=== PATIENT | female | born 1940 | race Caucasian/White ===

== ENCOUNTER → 2017-11-01 | Outpatient (CLI) | payer OTHER, MEDICARE ==
[~2017-11-01] MED LIST: ASPI-650 PO; CELE200C PO; HYDR-3237 PO; LEVO88TA43 PO; SIMV40TA3 PO; TRAM50TA2 PO; VALS160T3 PO; VALS320T2 PO
[2017-11-01 11:38] LABS: BASOPHILS % (AUTO) 1 % (0-1); EOSINOPHILS # (AUTO) 0.22 x10^3/uL (0-0.4); EOSINOPHILS % (AUTO) 2 % (1-7); LYMPHOCYTES # (AUTO) 1.35 x10^3/uL (1-3.4); LYMPHOCYTES % (AUTO) 14 % (22-44); MD NO; MEAN CORPUSCULAR HEMOGLOBIN 32.3 pg (27.0-34.8); MEAN CORPUSCULAR VOLUME 94.9 fL (80-100); MEAN PLATELET VOLUME 6.8 fL (7.4-10.4); MONOCYTES # (AUTO) 0.76 x10^3/uL (0.2-0.8); MONOCYTES % (AUTO) 8 % (2-9); NEUTROPHILS # (AUTO) 7.51 x10^3/uL (1.8-6.8); NEUTROPHILS % (AUTO) 76 % (42-75); PLATELET COUNT 343 x10^3/uL (130-400); RED BLOOD COUNT 4.76 x10^6/uL (3.82-5.3); RED CELL DISTRIBUTION WIDTH 13.8 % (9.6-15.2)
[2017-11-01 11:51] LABS: ALANINE AMINOTRANSFERASE 29 U/L (12-78); ALBUMIN 3.7 g/dL (3.4-5.0); CALCIUM 8.8 mg/dL (8.5-10.1); CREATININE 1.05 mg/dL (0.55-1.02)
[2017-11-01 12:04] LABS: ALKALINE PHOSPHATASE 102 U/L (45-117); ANION GAP 10 mmol/L (5-15); BILIRUBIN,TOTAL 0.4 mg/dL (0.2-1.0); CHLORIDE 105 mmol/L (98-107); TOTAL PROTEIN 7.8 g/dL (6.4-8.2)
== END | disposition home or self-care (01) ==
LOC: STAR 10:35
PROVIDERS: ATTEND Surgery
DX: Z01.818 Encounter for other preprocedural examination (principal)
CPT/HCPCS: 36415; 71046; 80053; 85025; 93005

== ENCOUNTER 2017-11-14 01:03 | Inpatient (IN) | payer OTHER, MEDICARE ==
[~2017-11-14] VITALS: Ht 162.6 cm; Wt 98.0 kg
[~2017-11-14 01:03] MED LIST changes: +OXYC-302 PO
[2017-11-14] MEDS ORDERED: SODIUM CHLORIDE 0.9% 1,000 ML IV ONE ×2 (01:35→03:31)
[2017-11-14] MEDS ORDERED: MORPHINE SULFATE 4 MG/ML, 1ML ONE ×3 (01:55→04:40)
[2017-11-14] MEDS ORDERED: ONDANSETRON ODT 4 MG ONE (01:55)
[2017-11-14] MEDS: MORPHINE SULFATE 4 MG/ML, 1ML IVPush PRN ×2 (02:00→03:01)
[2017-11-14] MEDS ORDERED: SODIUM CHLORIDE FLUSH 10ML SYR IVF ONE (02:00)
[2017-11-14] MEDS ORDERED: ONDANSETRON ODT 4 MG PO ONE (02:00)
[2017-11-14] MEDS ORDERED: SODIUM CHLORIDE 0.9% 1,000ML IVBOLUS ONE ×2 (02:00→02:30)
[2017-11-14 02:08] LABS: BASOPHILS # (AUTO) 0.02 x10^3/uL (0-0.1); BASOPHILS % (AUTO) 0 % (0-1); EOSINOPHILS # (AUTO) 0.05 x10^3/uL (0-0.4); EOSINOPHILS % (AUTO) 0 % (1-7); LYMPHOCYTES # (AUTO) 0.68 x10^3/uL (1-3.4); LYMPHOCYTES % (AUTO) 5 % (22-44); MD NO; MEAN CORPUSCULAR HEMOGLOBIN 31.9 pg (27.0-34.8); MEAN CORPUSCULAR HGB CONC 33.8 g/dL (32.4-35.8); MEAN CORPUSCULAR VOLUME 94.4 fL (80-100); MEAN PLATELET VOLUME 6.8 fL (7.4-10.4); MONOCYTES % (AUTO) 2 % (2-9); NEUTROPHILS # (AUTO) 12.41 x10^3/uL (1.8-6.8); NEUTROPHILS % (AUTO) 92 % (42-75); PLATELET COUNT 416 x10^3/uL (130-400); RED BLOOD COUNT 4.72 x10^6/uL (3.82-5.3); RED CELL DISTRIBUTION WIDTH 13.6 % (9.6-15.2)
[2017-11-14 02:16] LABS: INTERNATIONAL NORMALIZED RATIO 0.91 (0.93-1.1); PROTHROMBIN TIME 9.5 Seconds (9.6-11.5)
[2017-11-14 02:19] LABS: ALANINE AMINOTRANSFERASE 53 U/L (12-78); ALBUMIN 3.4 g/dL (3.4-5.0); ANION GAP 8 mmol/L (5-15); CALCIUM 10.1 mg/dL (8.5-10.1); CHLORIDE 103 mmol/L (98-107)
[2017-11-14 02:21] LABS: ALKALINE PHOSPHATASE 85 U/L (45-117); BILIRUBIN,TOTAL 0.8 mg/dL (0.2-1.0); CREATININE 1.16 mg/dL (0.55-1.02); TOTAL PROTEIN 7.8 g/dL (6.4-8.2)
[2017-11-14] MEDS ORDERED: PIPERACILLIN/TAZO/PMX 3.375GM 50 ML IVPB ONE (02:30)
[2017-11-14 03:35] LABS: MICROSCOPIC NOT IND
[2017-11-14 03:40] LABS: CULTURE INDICATED? NO
[2017-11-14] MEDS ORDERED: PIPERACILLIN/TAZO/PMX 3.375GM 50 ML ONE (03:59)
[2017-11-14] MEDS ORDERED: SODIUM CHLORIDE FLUSH 10ML SYR IVF PRN (04:00)
[2017-11-14] MEDS ORDERED: ONDANSETRON 2MG/ML, 2ML IVPush PRN ×2 (04:00→07:00)
[2017-11-14] MEDS ORDERED: MORPHINE SULFATE 4 MG/ML, 1ML IVPush PRN (04:00)
[2017-11-14] MEDS ORDERED: LIDOCAINE GEL 2%, 5ML ONE (04:13)
[2017-11-14] MEDS ORDERED: OMNIPAQUE 350 MG/ML, 100ML BOTTLE ONE (05:10)
[2017-11-14 06:00] VITALS: BP 155/84
[2017-11-14 06:39] VITALS: BP 155/84
[2017-11-14 06:53] VITALS: BP 139/84
[2017-11-14] MEDS ORDERED: ACETAMINOPHEN 325 MG TABLET PO PRN (07:00)
[2017-11-14] MEDS ORDERED: hydrALAzine 20 MG/ML, 1ML IVPush PRN (07:00)
[2017-11-14] MEDS: D5%-LACTATED RINGERS 1,000 ML IV SCH ×3 (07:41→23:51)
[2017-11-14] MEDS: morphine SULFATE 10 MG/ML, 1ML IVPush PRN ×4 (07:41→21:14)
[2017-11-14] MEDS: ONDANSETRON ODT 4 MG PO PRN ×2 (12:49→21:08)
[2017-11-14 13:51] VITALS: BP 127/82
[2017-11-14 19:18] VITALS: BP 135/75
[2017-11-15] MEDS: morphine SULFATE 10 MG/ML, 1ML IVPush PRN ×3 (01:09→21:58)
[2017-11-15 05:06] LABS: BASOPHILS # (AUTO) 0.03 x10^3/uL (0-0.1); BASOPHILS % (AUTO) 0 % (0-1); EOSINOPHILS # (AUTO) 0.85 x10^3/uL (0-0.4); EOSINOPHILS % (AUTO) 5 % (1-7); LYMPHOCYTES % (AUTO) 12 % (22-44); MD NO; MEAN CORPUSCULAR HEMOGLOBIN 31.7 pg (27.0-34.8); MEAN CORPUSCULAR HGB CONC 33.5 g/dL (32.4-35.8); MEAN CORPUSCULAR VOLUME 94.6 fL (80-100); MEAN PLATELET VOLUME 6.6 fL (7.4-10.4); MONOCYTES # (AUTO) 0.87 x10^3/uL (0.2-0.8); MONOCYTES % (AUTO) 6 % (2-9); NEUTROPHILS # (AUTO) 12.33 x10^3/uL (1.8-6.8); NEUTROPHILS % (AUTO) 77 % (42-75); PLATELET COUNT 444 x10^3/uL (130-400); RED BLOOD COUNT 4.07 x10^6/uL (3.82-5.3)
[2017-11-15 05:12] LABS: ANION GAP 5 mmol/L (5-15); CHLORIDE 106 mmol/L (98-107)
[2017-11-15 05:23] VITALS: BP 148/87
[2017-11-15] MEDS: D5%-LACTATED RINGERS 1,000 ML IV SCH ×3 (06:12→22:04)
[2017-11-15 07:27] VITALS: BP 150/87
[2017-11-15] MEDS: ONDANSETRON ODT 4 MG PO PRN ×2 (10:51→16:46)
[2017-11-15 14:42] VITALS: BP 155/86
[2017-11-15] MEDS: PROCHLORPERAZINE 5 MG/ML, 2ML IM PRN ×2 (17:53→21:59)
[2017-11-15 20:03] VITALS: BP 150/78
[2017-11-16 01:30] VITALS: BP 147/84
[2017-11-16] MEDS: morphine SULFATE 10 MG/ML, 1ML IVPush PRN (02:40)
[2017-11-16] MEDS: PROCHLORPERAZINE 5 MG/ML, 2ML IM PRN (03:27)
[2017-11-16 05:21] LABS: ANION GAP 4 mmol/L (5-15); CALCIUM 8.2 mg/dL (8.5-10.1); CHLORIDE 102 mmol/L (98-107)
[2017-11-16 05:22] LABS: BASOPHILS # (AUTO) 0.05 x10^3/uL (0-0.1); BASOPHILS % (AUTO) 0 % (0-1); EOSINOPHILS # (AUTO) 0.45 x10^3/uL (0-0.4); EOSINOPHILS % (AUTO) 3 % (1-7); LYMPHOCYTES # (AUTO) 0.89 x10^3/uL (1-3.4); LYMPHOCYTES % (AUTO) 6 % (22-44); MD NO; MEAN CORPUSCULAR HGB CONC 33.7 g/dL (32.4-35.8); MEAN PLATELET VOLUME 6.8 fL (7.4-10.4); MONOCYTES # (AUTO) 1.17 x10^3/uL (0.2-0.8); MONOCYTES % (AUTO) 8 % (2-9); NEUTROPHILS # (AUTO) 11.85 x10^3/uL (1.8-6.8); NEUTROPHILS % (AUTO) 82 % (42-75); PLATELET COUNT 348 x10^3/uL (130-400); RED CELL DISTRIBUTION WIDTH 13.9 % (9.6-15.2)
[2017-11-16] MEDS ORDERED: BUPIVACAINE/PF 0.25% ONE (07:34)
[2017-11-16] MEDS ORDERED: FENTANYL PF 100 MCG/2ML ONE ×2 (08:31→09:20)
[2017-11-16] MEDS ORDERED: CEFOTETAN PMX 2GM/50ML 50 ML IVPB ONE (08:39)
[2017-11-16] MEDS ORDERED: PROPOFOL 10 MG/ML, 20ML ONE (08:39)
[2017-11-16] MEDS ORDERED: ONDANSETRON 2MG/ML, 2ML ONE (08:39)
[2017-11-16] MEDS ORDERED: ROCURONIUM 10 MG/ML,10ML ONE (08:39)
[2017-11-16] MEDS ORDERED: GLYCOPYRROLATE 0.2MG/1ML, 5ML ONE (08:39)
[2017-11-16] MEDS ORDERED: PHENYLEPHRINE 10 MG/ML ONE (08:39)
[2017-11-16] MEDS ORDERED: DEXAMETHASONE 4 MG/ML, 1ML ONE (08:39)
[2017-11-16] MEDS ORDERED: NEOSTIGMINE 1 MG/ML, 10ML ONE (08:39)
[2017-11-16] MEDS ORDERED: BUPIVACAINE/PF 0.25% IM ONE (09:21)
[2017-11-16] MEDS ORDERED: POTASSIUM CHLORIDE 20 MEQ in SODIUM CHLORIDE 0.9% 250 ML IV SCH (09:30)
[2017-11-16] MEDS ORDERED: HYDROmorphone 1 MG/ML, 1ML IV PRN (10:00)
[2017-11-16] MEDS ORDERED: FENTANYL PF 100 MCG/2ML IV PRN (10:00)
[2017-11-16] MEDS ORDERED: HALOPERIDOL 5 MG/ML IV PRN (10:00)
[2017-11-16 12:10] VITALS: BP 132/60
[2017-11-16] MEDS ORDERED: OXYcodone IR 5MG TABLET PO PRN (12:30)
[2017-11-16] MEDS ORDERED: HYDROmorphone 1 MG/ML, 1ML IVPush PRN (12:30)
[2017-11-16] MEDS ORDERED: DIPHENHYDRAMINE 50 MG/ML, 1ML IVPush PRN (12:30)
[2017-11-16] MEDS ORDERED: DEXAMETHASONE 4 MG/ML, 1ML IVPush PRN (12:30)
[2017-11-16] MEDS ORDERED: CALCIUM CARBONATE 500 MG TAB.CHEW PO PRN (12:30)
[2017-11-16] MEDS: ACETAMINOPHEN 500 MG TABLET PO SCH ×2 (13:40→18:18)
[2017-11-16] MEDS: D5%-0.45NACL+KCL 20MEQ 1,000 ML IV SCH (17:57)
[2017-11-16] MEDS: IBUPROFEN 800 MG TABLET PO SCH ×2 (17:57→23:48)
[2017-11-16 18:45] VITALS: BP 101/54
[2017-11-16] MEDS: SIMVASTATIN 40 MG TABLET PO SCH (21:15)
[2017-11-17] MEDS: ACETAMINOPHEN 500 MG TABLET PO SCH ×4 (00:57→19:07)
[2017-11-17 01:34] VITALS: BP 114/73
[2017-11-17 05:20] LABS: BASOPHILS % (AUTO) 0 % (0-1); EOSINOPHILS # (AUTO) 0.48 x10^3/uL (0-0.4); EOSINOPHILS % (AUTO) 3 % (1-7); LYMPHOCYTES # (AUTO) 0.75 x10^3/uL (1-3.4); LYMPHOCYTES % (AUTO) 5 % (22-44); MD NO; MEAN CORPUSCULAR HEMOGLOBIN 32.2 pg (27.0-34.8); MEAN CORPUSCULAR HGB CONC 33.8 g/dL (32.4-35.8); MEAN CORPUSCULAR VOLUME 95.3 fL (80-100); MEAN PLATELET VOLUME 6.6 fL (7.4-10.4); MONOCYTES # (AUTO) 1.42 x10^3/uL (0.2-0.8); MONOCYTES % (AUTO) 10 % (2-9); NEUTROPHILS % (AUTO) 82 % (42-75); PLATELET COUNT 352 x10^3/uL (130-400); RED BLOOD COUNT 3.45 x10^6/uL (3.82-5.3); RED CELL DISTRIBUTION WIDTH 14.1 % (9.6-15.2)
[2017-11-17] MEDS: LEVOTHYROXINE 88 MCG TABLET PO SCH (05:24)
[2017-11-17] MEDS: ENOXAPARIN 40 MG/0.4 ML SQ SCH (05:24)
[2017-11-17 05:32] LABS: ANION GAP 5 mmol/L (5-15); CALCIUM 8.2 mg/dL (8.5-10.1); CHLORIDE 104 mmol/L (98-107)
[2017-11-17 05:33] LABS: CREATININE 1.15 mg/dL (0.55-1.02)
[2017-11-17] MEDS ORDERED: SODIUM CHLORIDE 0.9% 1,000ML IVBOLUS ONE (06:00)
[2017-11-17 08:29] VITALS: BP 138/80
[2017-11-17] MEDS: IBUPROFEN 800 MG TABLET PO SCH ×3 (08:58→20:06)
[2017-11-17 13:35] VITALS: BP 103/65
[2017-11-17] MEDS: D5%-0.45NACL+KCL 20MEQ 1,000 ML IV SCH (16:37)
[2017-11-17] MEDS: SIMVASTATIN 40 MG TABLET PO SCH (20:06)
[2017-11-17 20:20] VITALS: BP 123/79
[2017-11-17] MEDS: LORazepam 1MG TABLET PO PRN (21:59)
[2017-11-18] MEDS: ACETAMINOPHEN 500 MG TABLET PO SCH ×4 (00:30→18:29)
[2017-11-18 01:05] VITALS: BP 150/88
[2017-11-18] MEDS: ONDANSETRON ODT 4 MG PO PRN (01:12)
[2017-11-18] MEDS: LORazepam 1MG TABLET PO PRN (02:07)
[2017-11-18 04:44] LABS: BASOPHILS # (AUTO) 0.01 x10^3/uL (0-0.1); BASOPHILS % (AUTO) 0 % (0-1); EOSINOPHILS # (AUTO) 0.73 x10^3/uL (0-0.4); EOSINOPHILS % (AUTO) 7 % (1-7); LYMPHOCYTES % (AUTO) 5 % (22-44); MD NO; MEAN CORPUSCULAR HEMOGLOBIN 32.3 pg (27.0-34.8); MEAN CORPUSCULAR HGB CONC 33.9 g/dL (32.4-35.8); MEAN CORPUSCULAR VOLUME 95.2 fL (80-100); MEAN PLATELET VOLUME 6.7 fL (7.4-10.4); MONOCYTES # (AUTO) 0.93 x10^3/uL (0.2-0.8); MONOCYTES % (AUTO) 9 % (2-9); NEUTROPHILS # (AUTO) 8.16 x10^3/uL (1.8-6.8); NEUTROPHILS % (AUTO) 79 % (42-75); PLATELET COUNT 387 x10^3/uL (130-400); RED BLOOD COUNT 3.56 x10^6/uL (3.82-5.3); RED CELL DISTRIBUTION WIDTH 13.8 % (9.6-15.2)
[2017-11-18 04:54] LABS: ANION GAP 5 mmol/L (5-15); CALCIUM 8.4 mg/dL (8.5-10.1); CHLORIDE 103 mmol/L (98-107); CREATININE 0.88 mg/dL (0.55-1.02)
[2017-11-18] MEDS: LEVOTHYROXINE 88 MCG TABLET PO SCH (05:46)
[2017-11-18] MEDS: ENOXAPARIN 40 MG/0.4 ML SQ SCH (05:46)
[2017-11-18] MEDS ORDERED: METOCLOPRAMIDE 5 MG/ML, 2ML IVPush PRN ×2 (06:00→06:30)
[2017-11-18] MEDS ORDERED: SODIUM CHLORIDE 0.9% 1,000ML IVBOLUS ONE (06:00)
[2017-11-18] MEDS ORDERED: METOCLOPRAMIDE 5 MG/ML, 2ML ONE (06:11)
[2017-11-18 07:19] VITALS: BP 146/80
[2017-11-18] MEDS: IBUPROFEN 800 MG TABLET PO SCH ×3 (08:58→21:25)
[2017-11-18] MEDS: METOCLOPRAMIDE 5 MG/ML, 2ML IVPush SCH ×2 (10:41→17:50)
[2017-11-18] MEDS: D5%-0.45NACL+KCL 20MEQ 1,000 ML IV SCH (13:49)
[2017-11-18 14:17] VITALS: BP 105/64
[2017-11-18 21:07] VITALS: BP 135/80
[2017-11-18] MEDS: SIMVASTATIN 40 MG TABLET PO SCH (21:25)
[2017-11-19] MEDS: METOCLOPRAMIDE 5 MG/ML, 2ML IVPush SCH ×5 (00:41→23:49)
[2017-11-19] MEDS: ACETAMINOPHEN 500 MG TABLET PO SCH ×4 (00:42→18:21)
[2017-11-19] MEDS: D5%-0.45NACL+KCL 20MEQ 1,000 ML IV SCH ×3 (00:44→21:21)
[2017-11-19 01:40] VITALS: BP 106/67
[2017-11-19 05:03] LABS: BASOPHILS # (AUTO) 0.03 x10^3/uL (0-0.1); BASOPHILS % (AUTO) 0 % (0-1); EOSINOPHILS # (AUTO) 0.62 x10^3/uL (0-0.4); EOSINOPHILS % (AUTO) 7 % (1-7); LYMPHOCYTES % (AUTO) 8 % (22-44); MD NO; MEAN CORPUSCULAR HEMOGLOBIN 31.1 pg (27.0-34.8); MEAN CORPUSCULAR HGB CONC 32.8 g/dL (32.4-35.8); MEAN CORPUSCULAR VOLUME 94.9 fL (80-100); MEAN PLATELET VOLUME 6.9 fL (7.4-10.4); MONOCYTES # (AUTO) 1.04 x10^3/uL (0.2-0.8); MONOCYTES % (AUTO) 12 % (2-9); NEUTROPHILS # (AUTO) 6.29 x10^3/uL (1.8-6.8); NEUTROPHILS % (AUTO) 72 % (42-75); PLATELET COUNT 426 x10^3/uL (130-400); RED BLOOD COUNT 3.28 x10^6/uL (3.82-5.3); RED CELL DISTRIBUTION WIDTH 14.2 % (9.6-15.2)
[2017-11-19 05:16] LABS: ANION GAP 5 mmol/L (5-15); CALCIUM 7.6 mg/dL (8.5-10.1); CHLORIDE 106 mmol/L (98-107)
[2017-11-19 05:34] LABS: CREATININE 0.88 mg/dL (0.55-1.02)
[2017-11-19] MEDS: LEVOTHYROXINE 88 MCG TABLET PO SCH (06:43)
[2017-11-19 08:05] VITALS: BP 132/63
[2017-11-19] MEDS: IBUPROFEN 800 MG TABLET PO SCH ×3 (08:10→20:35)
[2017-11-19] MEDS: ENOXAPARIN 40 MG/0.4 ML SQ SCH (08:13)
[2017-11-19 08:58] VITALS: BP 129/71
[2017-11-19 15:12] VITALS: BP 135/76
[2017-11-19 19:28] VITALS: BP 142/84
[2017-11-19] MEDS: SIMVASTATIN 40 MG TABLET PO SCH (20:35)
[2017-11-20] MEDS: ACETAMINOPHEN 500 MG TABLET PO SCH ×3 (00:30→11:58)
[2017-11-20 02:07] VITALS: BP 163/77
[2017-11-20] MEDS: LEVOTHYROXINE 88 MCG TABLET PO SCH (06:00)
[2017-11-20] MEDS: D5%-0.45NACL+KCL 20MEQ 1,000 ML IV SCH (06:00)
[2017-11-20] MEDS: METOCLOPRAMIDE 5 MG/ML, 2ML IVPush SCH ×2 (07:38→13:43)
[2017-11-20 08:07] VITALS: BP 144/81
[2017-11-20 09:25] LABS: ALANINE AMINOTRANSFERASE 38 U/L (12-78); ALBUMIN 2.5 g/dL (3.4-5.0); ANION GAP 6 mmol/L (5-15); CHLORIDE 105 mmol/L (98-107); CREATININE 0.84 mg/dL (0.55-1.02)
[2017-11-20 09:27] LABS: ALKALINE PHOSPHATASE 82 U/L (45-117); BILIRUBIN,TOTAL 0.6 mg/dL (0.2-1.0); TOTAL PROTEIN 6.2 g/dL (6.4-8.2)
[2017-11-20] MEDS: ENOXAPARIN 40 MG/0.4 ML SQ SCH (09:27)
[2017-11-20] MEDS: IBUPROFEN 800 MG TABLET PO SCH (09:27)
[2017-11-20 09:53] LABS: BASOPHILS # (AUTO) 0.02 x10^3/uL (0-0.1); BASOPHILS % (AUTO) 0 % (0-1); EOSINOPHILS # (AUTO) 0.45 x10^3/uL (0-0.4); EOSINOPHILS % (AUTO) 4 % (1-7); LYMPHOCYTES # (AUTO) 0.56 x10^3/uL (1-3.4); LYMPHOCYTES % (AUTO) 5 % (22-44); MD NO; MEAN CORPUSCULAR HEMOGLOBIN 32.2 pg (27.0-34.8); MEAN CORPUSCULAR HGB CONC 33.7 g/dL (32.4-35.8); MEAN CORPUSCULAR VOLUME 95.7 fL (80-100); MEAN PLATELET VOLUME 6.9 fL (7.4-10.4); MONOCYTES # (AUTO) 0.62 x10^3/uL (0.2-0.8); MONOCYTES % (AUTO) 6 % (2-9); NEUTROPHILS % (AUTO) 84 % (42-75); PLATELET COUNT 484 x10^3/uL (130-400); RED BLOOD COUNT 3.66 x10^6/uL (3.82-5.3); RED CELL DISTRIBUTION WIDTH 14.2 % (9.6-15.2)
[2017-11-20 13:52] VITALS: BP 154/91
== END 2017-11-20 15:24 | disposition home health service (06) | DRG 853 ==
LOC: ED 01:45 → EDIP 04:20 → 4NOR 05:48
PROVIDERS: ADMIT Surgery; ATTEND Surgery
PROC: 0D9670Z Drainage of Stomach with Drainage Device, Via Natural or Artificial Opening (ICD-10-PCS; principal; 2017-11-14)
PROC: 0T9B70Z Drainage of Bladder with Drainage Device, Via Natural or Artificial Opening (ICD-10-PCS; 2017-11-14)
PROC: 0WQF4ZZ Repair Abdominal Wall, Percutaneous Endoscopic Approach (ICD-10-PCS; 2017-11-16)
PROC: 8E0W4CZ Robotic Assisted Procedure of Trunk Region, Percutaneous Endoscopic Approach (ICD-10-PCS; 2017-11-16)
DX: A41.9 Sepsis, unspecified organism (principal); R65.21 Severe sepsis with septic shock; K43.3 Parastomal hernia with obstruction, without gangrene; Z90.49 Acquired absence of other specified parts of digestive tract; Z93.3 Colostomy status; R09.02 Hypoxemia; K57.90 Diverticulosis of intestine, part unspecified, without perforation or abscess without bleeding; K43.5 Parastomal hernia without obstruction or gangrene; I10 Essential (primary) hypertension; E03.9 Hypothyroidism, unspecified; M19.90 Unspecified osteoarthritis, unspecified site
CPT/HCPCS: 36415; 71045; 74177; 80048; 80053; 81003; 83605; 83690; 84145; 85025; 85610; 85730; 86140; 87040; 93005; 96361; 96365; 96375; 96376; J1100; J1650; J2405; J2543; J2704; J2710; J3010; J3480; J3490; Q0162; Q9967; J0780; J1200; J2270; J2370; J2765; J7030; J7050; J7121; S0074